=== PATIENT | female | born 1990 | race Asian ===

== ENCOUNTER 2018-11-24 09:25 | Emergency (ER) | payer MEDICAID ==
[~2018-11-24] VITALS: Ht 152.4 cm; Wt 60.8 kg
[2018-11-24 09:35] VITALS: BP 131/86; Ht 152.4 cm; Wt 60.8 kg
== END 2018-11-24 10:44 | disposition home or self-care (01) ==
LOC: ED 09:25
DX: S93.505A Unspecified sprain of left lesser toe(s), initial encounter (principal); W22.01XA Walked into wall, initial encounter; Y93.01 Activity, walking, marching and hiking; Y92.89 Other specified places as the place of occurrence of the external cause; Y99.8 Other external cause status
CPT/HCPCS: Q0092